=== PATIENT | female | born 1950 | race Caucasian/White ===

== ENCOUNTER 2018-08-31 05:05 | Emergency (ER) | payer OTHER ==
[~2018-08-31] VITALS: Wt 58.6 kg
[~2018-08-31 05:05] MED LIST: FENO145T37 PO; METF-849 PO; NOVO7030 SC; POTA20TA15 PO; SIMV20TA2 PO; SITA100T11 PO
[2018-08-31] MEDS ORDERED: KETOROLAC 30 MG INJ IM STA (05:45)
[2018-08-31] MEDS ORDERED: METH750T93 PO (06:43)
--- NOTE | 2018-08-31 06:57 | ERD ---
ER Documentation Chief Complaint Chief Complaint CRAMPS IN BILAT LEGS AND ARMS X'S 1 HOUR HPI 68-year-old female has been history of diabetes, pancreatic insufficiency, renal insufficiency presents for bilateral lower extremity cramping times 2 hours. She states that her pain is rated 9 out of 10. She has had prior similar sympto ms before but however she states that it is worse now. She took some Tylenol with only mild relief. She is also on gabapentin currently which she has been taking but the pain is not improved with the medication. She denies any fevers or chills. She denies any chest pain or shortness of breath. Denies abdominal pain nausea vomiting. ROS All systems reviewed and are negative except as per history of present illness. Medications Home Meds Active Scripts Methocarbamol* (Robaxin*) 750 Mg Tablet, 750 MG PO TID PRN for muscle cramp, #30 TAB Prov:JERI GONZALEZ DO 08/31/18 Reported Medications Potassium Chloride* (K-Dur*) 20 Meq Tab.prt.sr, 20 MEQ PO DAILY, TAB.SA 12/29/14 Insulin Isophan/Regular (Humulin 70/30) 100 Units/Ml Susp, 30 UNIT SC BID, EA 12/29/14 Sitagliptin* (Januvia*) 100 Mg Tablet, 100 MG PO DAILY, TAB 12/29/14 Fenofibrate Nanocrystallized* (Fenofibrate*) 145 Mg Tablet, 145 MG PO DAILY, TAB 12/29/14 Simvastatin (Simvastatin) 20 Mg Tablet, 20 MG PO HS, TAB 12/29/14 Metformin* (Glucophage*) 500 Mg Tab, 500 MG PO QPM, TAB 12/29/14 Metformin* (Glucophage*) 500 Mg Tab, 1000 MG PO QAM, TAB 12/29/14 Allergies Allergies: Uncoded Allergies: PENICILLIN (Allergy, Unknown, 12/29/14) PMhx/Soc History of Surgery: Yes (Colostomy, Cholecystectomy, C/S x 2) Anesthesia Reaction: No Hx Neurological Disorder: No Hx Respiratory Disorders: No Hx Cardiac Disorders: Yes (HTN, hypercholesteremia) Hx Psychiatric Problems: No Hx Miscellaneous Medical Probl: Yes (DM ) Hx Alcohol Use: No Hx Substance Use: No Hx Tobacco Use: No Smoking Status: Never smoker Physical Exam Vitals Vital Signs Date Temp Pulse Resp B/P (MAP) Pulse Ox O2 O2 Flow FiO2 Time Delivery Rate 08/31/18 98.7 101 20 148/69 100 05:08 (95) Physical Exam Const: No acute distress Resp: Clear to auscultation bilaterally Cardio: Regular rate and rhythm, no murmurs, bilateral radial dorsalis pedis pulses intact Abd: Soft, non tender, non distended. Normal bowel sounds Skin: No petechiae or rashes Back: No midline or flank tenderness Ext: Decreased muscle strength of the bilateral lower extremity secondary to pain. bilateral leg compartments soft. Neur: Awake and alert, bilateral upper and lower extremity sensation intact Psych: Normal Mood and Affect Result Diagram: 08/31/18 0605 08/31/18 06 Results 24 hrs Laboratory Tests Test 08/31/18 06:03 08/31/18 06:05 Urine Color STRAW Urine Clarity CLEAR Urine pH 6.0 Urine Specific [place] 1.022 Urine Ketones NEGATIVE mg/dL Urine Nitrite NEGATIVE mg/dL Urine Bilirubin NEGATIVE mg/dL Urine Urobilinogen NEGATIVE mg/dL Urine Leukocyte Esterase NEGATIVE Ana/ul Urine Hemoglobin NEGATIVE mg/dL Urine Glucose 3+ mg/dL Urine Total Protein NEGATIVE mg/dl White Blood Count 6.2 10^3/ul Red Blood Count 3.80 10^6/ul Hemoglobin 11.2 g/dl Hematocrit 32.8 % Mean Corpuscular Volume 86.3 fl Mean Corpuscular Hemoglobin 29.5 pg Mean Corpuscular Hemoglobin Concent 34.1 g/dl Red Cell Distribution Width 11.9 % Platelet Count 155 10^3/UL Mean Platelet Volume 12.2 fl Immature Granulocytes % 0.300 % Neutrophils % 57.0 % Lymphocytes % 33.2 % Monocytes % 8.4 % Eosinophils % 0.8 % Basophils % 0.3 % Nucleated Red Blood Cells % 0.0 /100WBC Immature Granulocytes # 0.020 10^3/ul Neutrophils # 3.5 10^3/ul Lymphocytes # 2.1 10^3/ul Monocytes # 0.5 10^3/ul Eosinophils # 0.1 10^3/ul Basophils # 0.0 10^3/ul Nucleated Red Blood Cells # 0.0 10^3/ul Sodium Level 139 mmol/L Potassium Level 3.7 mmol/L Chloride Level 99 mmol/L Carbon Dioxide Level 24 mmol/L Anion Gap 16 Blood Urea Nitrogen 34 mg/dl Creatinine 2.65 mg/dl Est Glomerular Filtrat Rate mL/min 18 mL/min Glucose Level 441 mg/dl Calcium Level 10.2 mg/dl Total Bilirubin 0.1 mg/dl Direct Bilirubin 0.00 mg/dl Indirect Bilirubin 0.1 mg/dl Aspartate Amino Transf (AST/SGOT) 28 IU/L Alanine Aminotransferase (ALT/SGPT) 22 IU/L Alkaline Phosphatase 231 IU/L Creatine Kinase 137 IU/L Total Protein 7.9 g/dl Albumin 4.6 g/dl Globulin 3.30 g/dl Albumin/Globulin Ratio 1.39 Current Medications Medications Dose Sig/Agnes Start Time Status Last (Trade) Ordered Route PRN Stop Time Admin Dose Reason Admin Ketorolac 30 mg ONCE STAT 08/31/18 DC 08/31/18 Tromethamine IM 05:45 08/31/18 06:12 (Toradol) 05:49 Sodium 1,000 ml @ Q1H ONCE 08/31/18 08/31/18 Chloride 1,000 mls/hr IV 07:00 08/31/18 06:55 07:59 Procedures/MDM Medical Decision Making: Differential diagnosis includes but not limited to myositis, statin induced myopathy, infection, compartment syndrome. Patient appeared well on physical exam. There was pain to palpation of bilateral lower extremities. CBC showed no anemia, no elevated WBC to suggest systemic infection CMP showed no electrolyte abnormalities. There was renal insufficiency. Glucose noted to be 441. CK was normal. UA negative for infection. Patient was given Toradol with some relief of symptoms. Given the elevated glucose, IV fluids were given. The elevated creatinine of 2.65 is an improvement from the creatinine of 3 which patient states she had in May 2018. Patient given prescription for Robaxin. She is advised to continue with Tylenol and gabapentin which she has at home. Patient advised to follow up with PCP in 1-2 days. Patient advised to return to ED for new or worsening symptoms. Patient stable on discharge from the ED. Disclaimer: Inadvertent spelling and grammatical errors are likely due to EHR/dictation software use and do not reflect on the overall quality of patient care. Also, please note that the electronic time recorded on this note does not necessarily reflect the actual time of the patient encounter. Departure Diagnosis: Primary Impression: Cramps of lower extremity Additional Impression: Hyperglycemia Condition: Fair Patient Instructions: Hyperglycemia (High Blood Sugar) Additional Instructions: Thuy mederos doctor IAN easley manuel SKYLA PARA DENTRO DE 1-2 HALL.Dgale a la secretaria que nosotros le instruimos hacer esta skyla.Avise o llame si lynne condicin se empeora antes de la skyla. Regresa aqui si peor o no mejor. JERI GONZALEZ DO Aug 31, 2018 06:57
[2018-08-31] MEDS ORDERED: SOD CHLORIDE 0.9% 1,000 ML IV ONE (07:00)
[2018-08-31 08:36] VITALS: BP 114/56; PULSE 82; RESP 18
== END 2018-08-31 08:41 | disposition home or self-care (01) ==
LOC: FTE 05:05
DX: R25.2 Cramp and spasm (principal); E11.65 Type 2 diabetes mellitus with hyperglycemia; I10 Essential (primary) hypertension; Z79.4 Long term (current) use of insulin
CPT/HCPCS: 80053; 81003; 82550; 82962; 85025; 96360; 96372; 99284; J1885; J7030